=== PATIENT | male | born 1935 | race Caucasian/White ===

== ENCOUNTER 2017-09-27 11:38 | Inpatient (IN) | payer OTHER, MEDICARE ==
[2017-09-27] MEDS ORDERED: IPRATROPIUM/ALBUTEROL 3 ML DEYVIAL IH ONE (12:05)
--- NOTE | 2017-09-27 12:12 | EDPHY ---
H & P Stated Complaint: states URI with sob, fever last 3 days,nasal srainge yellow Time Seen by Provider: 09/27/17 11:51 HPI/ROS: This patient complains of cough and shortness of breath. He explains that while still in [place] about a week ago he developed nasal congestion and occasional cough. His symptoms persisted but worsened 3 days ago with onset of chills and fevers in addition. The patient return from home why 5 days ago. He has moderate dyspnea at baseline over the past few days that worsens with exertion. Patient also developed brown colored sputum over the past couple days. He produces sample this shortly after arrival. He denies any other associated symptoms. He arrives here by private vehicle with his common-law for further evaluation. Patient reports that he took an [id number]-[id number] cold medication today that included a full 325 mg dose of aspirin. ROS: Fevers and chills over the past 3 days as per HPI. No other constitutional symptoms HEENT: He had nasal congestion earlier in the illness that has since resolved. No sore throat. No ear pain. No facial pain. Pulmonary: No pleuritic pain. Moderate dyspnea at times. No respiratory distress. No blood tinged sputum. Cardiovascular: No lightheadedness or heart palpitations. No chest pain. GI: No nausea vomiting : No complaints Integumentary: No skin rash pallor Neuro: No numbness tingling weakness. No headache. Complete ROS is otherwise negative. 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 Patient thinks that he has had atrial bigeminy in the past Hx Asthma: No Hx Chronic Respiratory Disease: Yes Hx Diabetes: No Hx Cardiac Disease: No Hx Renal Disease: No Hx Cirrhosis: No Hx Alcoholism: No Hx HIV/AIDS: No Hx Splenectomy or Spleen Trauma: No Other PMH: Med hx-enlarged prostate,COPD. Surrg-hernia,tonsils - Family History Significant Family History: No pertinent family hx - Social History Smoking Status: Former smoker Alcohol Use: Occasionally Drug Use: None - Physical Exam Exam: Vital signs are notable for hypoxia to 89% baseline. Patient is unaware of any baseline hypoxia. Other vitals normal General Appearance: Alert, no distress. Eyes: Pupils equal and round no pallor or injection. ENT, Mouth: Mucous membranes moist. Respiratory: Diminished breath sounds with rhonchi bilateral bases Cardiovascular: Regular rate and rhythm. No murmur gallop rub. No JVD. No peripheral edema. Gastrointestinal: Abdomen is soft and nontender, no masses, bowel sounds normal. Neurological: GCS 15. Skin: Warm and dry, no rashes. Musculoskeletal: Neck is supple nontender. Extremities are symmetrical, full range of motion. Psychiatric: Mood and affect are normal DIFFERENTIAL DIAGNOSIS: After history and physical exam differential diagnosis was considered for bronchitis, pneumonia, question baseline I LD versus COPD or combination thereof., ischemic cardiac disease Constitutional: Initial Vital Signs Temperature (C) 37.6 C 09/27/17 11:42 Heart Rate 86 09/27/17 11:42 Respiratory Rate 18 09/27/17 11:42 Blood Pressure 104/63 09/27/17 11:42 O2 Sat (%) 89 L 09/27/17 11:42 O2 Delivery Mode Nasal Cannula O2 (L/minute) 2 Allergies/Adverse Reactions: No Known Allergies Allergy (Verified 09/27/17 11:42) Home Medications: Medication Instructions Recorded Flomax 09/27/17 Medical Decision Making - Diagnostics EKG Interpretation: 12 lead EKG performed at 12:23 p.m. reveals supraventricular bigeminy at 79 Intervals: P R of 128, QRS of 94, QTC of 432 [place]: P of 75, QRS of 54, T of 37degrees ST segments normal throughout Overall assessment super ventricular bigeminy Imaging Results: Imaging Impressions Chest X-Ray 09/27/17 12:04 Impression: 1. Right infrahilar pneumonia versus mass. 2. Airways disease and bibasilar linear atelectasis. Case was discussed with Dr. Kyrie Alegre. Recommend follow-up chest radiograph in four weeks. If the right infrahilar process persists, recommend proceeding with CT of the chest with IV contrast to evaluate for underlying mass. Chest x-ray: PA and lateral: Right middle lobe infiltrate with some lower lobe involvement as well on the right side. I also spoke with the radiologist-Dr. Brito regarding this x-ray he brings up the differential diagnosis of possible mass or lesion warranting a follow-up x- ray in 4 weeks to document clearance. Imaging: Discussed imaging studies w/ train caller Radiologist, I viewed and interpreted images myself ED Course/Re-evaluation: IV, nasal cannula O2 with O2 sat in the low 90s Placed on a monitor DuoNeb with reduction in cough frequency and subjective mild improvement. After review of chest x-ray with pneumonia, patient treated with IV Rocephin and oral Zithromax antibiotic Solumedrol 125 mg IV Review of his labs revealed mild renal insufficiency. No significant leukocytosis other's a bit of a left shift. Lactate is normal At 2:15 p.m. patient is having increased frequency of coughing again treated with a 2nd nebulizer-albuterol I think that is renal insufficiency attributable to dehydration treated with a 1 L normal saline bolus here While this patient's findings are not consistent with sepsis, Given combination of patient's hypoxia, multilobar pneumonia, renal insufficiency and atrial bigeminy along with advanced age, I think this patient warrants admission for further treatment. I spoke with his regarding this and are comfortable with the plan for admission to [facility]. I spoke with Mis Moses who accepts patient for admission to Dr. Morales - hospitalist at [facility] for further treatment workup - Data Points Laboratory Results: Laboratory Results 09/27/17 12:15 09/27/17 12:15 09/27/17 09/27/17 09/27/17 12:15 12:15 12:15 WBC 9.08 10^3/uL 10^3/uL (3.80-9.50) RBC 5.18 10^6/uL 10^6/uL (4.40-6.38) Hgb 15.7 g/dL g/dL (13.7-17.5) Hct 45.2 % % (40.0-51.0) MCV 87.3 fL fL (81.5-99.8) MCH 30.3 pg pg (27.9-34.1) MCHC 34.7 g/dL g/dL (32.4-36.7) RDW 13.3 % % (11.5-15.2) Plt Count 192 10^3/uL 10^3/uL (150-400) MPV 10.0 fL fL (8.7-11.7) Neut % (Auto) 75.5 % H % (39.3-74.2) Lymph % (Auto) 10.2 % L % (15.0-45.0) Barry % (Auto) 13.7 % H % (4.5-13.0) Eos % (Auto) 0.1 % L % (0.6-7.6) Baso % (Auto) 0.2 % L % (0.3-1.7) Nucleat RBC Rel Count 0.0 % % (0.0-0.2) Absolute Neuts (auto) 6.85 10^3/uL H 10^3/uL (1.70-6.50) Absolute Lymphs (auto) 0.93 10^3/uL L 10^3/uL (1.00-3.00) Absolute Monos (auto) 1.24 10^3/uL H 10^3/uL (0.30-0.80) Absolute Eos (auto) 0.01 10^3/uL L 10^3/uL (0.03-0.40) Absolute Basos (auto) 0.02 10^3/uL 10^3/uL (0.02-0.10) Absolute Nucleated RBC 0.00 10^3/uL 10^3/uL (0-0.01) Immature Gran % 0.3 % % (0.0-1.1) Immature Gran # 0.03 10^3/uL 10^3/uL (0.00-0.10) VBG Lactic Acid Sodium 142 mEq/L mEq/L (134-144) Potassium 4.1 mEq/L mEq/L (3.5-5.2) Chloride 107 mEq/L mEq/L (97-110) Carbon Dioxide 22 mEq/l mEq/l (22-31) Anion Gap 13 mEq/L mEq/L (8-16) BUN 26 mg/dL H mg/dL (7-23) Creatinine 1.6 mg/dL H mg/dL (0.7-1.3) Estimated GFR 42 Glucose 128 mg/dL H mg/dL (70-100) Calcium 8.9 mg/dL mg/dL (8.5-10.4) Troponin I 0.025 ng/mL ng/mL (0.000-0.034) 09/27/17 12:15 WBC RBC Hgb Hct MCV MCH MCHC RDW Plt Count MPV Neut % (Auto) Lymph % (Auto) Barry % (Auto) Eos % (Auto) Baso % (Auto) Nucleat RBC Rel Count Absolute Neuts (auto) Absolute Lymphs (auto) Absolute Monos (auto) Absolute Eos (auto) Absolute Basos (auto) Absolute Nucleated RBC Immature Gran % Immature Gran # VBG Lactic Acid 2.0 mmol/L mmol/L (0.7-2.1) Sodium Potassium Chloride Carbon Dioxide Anion Gap BUN Creatinine Estimated GFR Glucose Calcium Troponin I Medications Given: Discontinued Medications Albuterol/Ipratropium (Duoneb) 3 ml IH EDNOW ONE Stop: 09/27/17 12:06 Last Admin: 09/27/17 12:20 Dose: 3 ml Aspirin (Aspirin) 325 mg PO EDNOW ONE Stop: 09/27/17 13:12 Last Admin: 09/27/17 13:31 Dose: Not Given Azithromycin (Zithromax) 500 mg PO EDNOW ONE PRN Reason: Protocol Stop: 09/27/17 13:03 Last Admin: 09/27/17 13:14 Dose: 500 mg Sodium Chloride (Ns) 1,000 mls @ 0 mls/hr IV ONCE ONE; Wide Open PRN Reason: Protocol Stop: 09/27/17 12:43 Last Admin: 09/27/17 12:44 Dose: 1,000 mls Ceftriaxone Sodium 1 gm/ (Sodium Chloride) 100 mls @ 200 mls/hr IV EDNOW ONE PRN Reason: Protocol Stop: 09/27/17 13:30 Last Admin: 09/27/17 13:13 Dose: 100 mls Departure - Departure Disposition: [facility] Inpatient Acute Clinical Impression: Renal insufficiency, Atrial bigeminy, Hypoxia Community acquired pneumonia Qualifiers: Laterality: right Lung location: middle lobe of lung Qualified Code(s): J18.1 - Lobar pneumonia, unspecified organism Condition: Fair Referrals: NONE *PRIMARY CARE P,. [Primary Care Provider] - As per Instructions Liliam Briseno MD [Medical Doctor] - As per Instructions
[2017-09-27 12:18] LABS: % IMMATURE GRANULYOCYTES 0.3 % (0.0-1.1); ABSOLUTE IMMATURE GRANULOCYTES 0.03 10^3/uL (0.00-0.10); ADD DIFF? NO; ADD MORPH? NO; ADD SCAN? NO; ATYPICAL LYMPHOCYTE FLAG 30 (0-99); FRAGMENT RBC FLAG 0 (0-99); HEMATOCRIT 45.2 % (40.0-51.0); HEMOGLOBIN 15.7 g/dL (13.7-17.5); LEFT SHIFT FLG 20 (0-99); LIPEMIA HEMOLYSIS FLAG 90 (0-99); MEAN CELL HEMOGLOBIN 30.3 pg (27.9-34.1); MEAN CELL HEMOGLOBIN CONCENTR. 34.7 g/dL (32.4-36.7); MEAN CELL VOLUME 87.3 fL (81.5-99.8); PLATELET CLUMPS FLAG 10 (0-99); PLATELET COUNT 192 10^3/uL (150-400); RED BLOOD CELL COUNT 5.18 10^6/uL (4.40-6.38); RED CELL DISTRIBUTION WIDTH 13.3 % (11.5-15.2)
--- NOTE | 2017-09-27 12:24 | CPEKG ---
Heart Rate: 79 RR Interval: 759 P-R Interval: 128 QRSD Interval: 94 QT Interval: 376 QTC Interval: 432 P [place]: 75 QRS [place]: 54 T Wave [place]: 37 EKG Severity - ABNORMAL ECG - EKG Impression: SINUS RHYTHM EKG Impression: SUPRAVENTRICULAR BIGEMINY Electronically Signed By: Kaden Joyce 01-Oct-2017 08:44:07
[2017-09-27 12:35] LABS: CALCIUM 8.9 mg/dL (8.5-10.4); CREATININE 1.6 mg/dL (0.7-1.3); POTASSIUM 4.1 mEq/L (3.5-5.2)
[2017-09-27] MEDS ORDERED: NS 1,000 ML IV ONE (12:42)
[2017-09-27] MEDS ORDERED: AZITHROMYCIN 250 MG TAB PO ONE (13:02)
[2017-09-27] MEDS ORDERED: ASPIRIN 325 MG TAB PO ONE (13:11)
[2017-09-27] MEDS ORDERED: ALBUTEROL 3 ML DEYVIAL IH ONE (14:23)
[2017-09-27] MEDS ORDERED: methylPREDNISolone SOD SUCC 125 MG/2 ML VIAL IVP ONE (14:34)
[2017-09-27] MEDS ORDERED: ACETAMINOPHEN 325 MG TAB PO PRN (17:00)
[2017-09-27] MEDS ORDERED: ONDANSETRON DISINTEGRATING 4 MG TAB PO PRN (17:00)
[2017-09-27] MEDS ORDERED: IOPAMIDOL (ISOVUE-300) 100 ML BTL ONE (17:08)
[2017-09-27] MEDS ORDERED: NS W/ 20 KCl/L 1,000 ML IV SCH (17:15)
[2017-09-27] MEDS: TAMSULOSIN HCL 0.4 MG CAP PO SCH (20:14)
--- NOTE | 2017-09-27 20:33 | GHP ---
[f rep st] HISTORY AND PHYSICAL DATE OF ADMISSION: 09/27/2017 CHIEF COMPLAINT: Cough, shortness of breath. HISTORY OF PRESENT ILLNESS: This is an 82-year-old man, with limited medical history, who presents w ith 1 week worth of cough. He has had some low-grade fevers. He has been producing purulent sputum. No one else is sick around him. He has not been losing weight, does not have night sweats. He is not otherwise immunosuppressed. PAST MEDICAL/SURGICAL HISTORY: 1. Questionable COPD. 2. BPH. 3. Hernia repair. 4. Tonsillectomy. MEDICATIONS: Please see medication reconciliation. ALLERGIES: No known drug allergies. FAMILY HISTORY: Reviewed and noncontributory. SOCIAL HISTORY: He is . He quit smoking 40 years ago. He was never a heavy smoker. He occa sionally drinks alcohol. He relocated here from [place] about 2 years ago. REVIEW OF SYSTEMS: A 10-point review of systems is conducted and is negative except per HPI. PHYSICAL EXAMINATION: VITAL SIGNS: Blood pressure 114/75, heart rate 84, respiration rate 24, satur ating at 91% on 2 L. Temperature is 37.6. GENERAL: The patient is a pleasant man, who appears somew hat uncomfortable, but really in no acute distress. HEENT: Shows him to be normocephalic, atraumati c. CARDIOVASCULAR: Shows him to have irregular pulse. He is not bradycardic or tachycardic, howeve r. There are no murmurs, rubs, or gallops. PULMONARY: Shows scant expiratory wheezes. He has diff use rhonchi. ABDOMEN: Soft, nontender, nondistended. SKIN: Shows no rash. : No Lacy. NEUROL OGIC: Shows him to be alert and oriented x3. He is moving all extremities. PSYCHIATRIC: Shows nor mal mood and affect. LABORATORY DATA: White count is 9.08. Lactate is 2.0. Creatinine is 1.6. Troponin 0.025. DATA: 1. I personally reviewed and interpreted his EKG that shows underlying sinus rhythm. He has frequen t premature ectopic atrial beats. Heart rate is 79. 2. Chest x-ray, which I personally reviewed and interpreted, shows a right middle lobe infiltrate ve rsus mass. IMPRESSION/PLAN: 1. Suspected pneumonia: Clinical history consistent with this. Imaging is consistent with either i nfiltrate versus mass. Based on its size, I would expect him to be somewhat sicker with fevers and a white count. He does not really have good followup, thus, I will go ahead and get a CT scan to furt her evaluate this. We will send respiratory viral PCR, procalcitonin and sputum cultures. Will empi rically treat him for community-acquired pneumonia with Rocephin, as well as azithromycin. 2. Hypoxia: Likely due to the above. Will give him some nebulizers, as well as prednisone. 3. Elevated creatinine: He has never been told he had kidney problems. I suspect this is acute. F or bandar, will hydrate him and recheck in the morning. Otherwise, he does have a history of benign prostatic hypertrophy, also considered that this could be chronic. 4. Atrial ectopy: Seen on the CT scan, as well as telemetry. He is not having any chest pain. Ton ight, will get 2 more troponins, check an EKG tomorrow morning, as well as an echocardiogram. If all these are relatively unremarkable, this could be deferred to further outpatient workup. CODE STATUS: Full. /[id number]/MODL
[2017-09-28 05:18] LABS: % IMMATURE GRANULYOCYTES 0.3 % (0.0-1.1); ABSOLUTE IMMATURE GRANULOCYTES 0.02 10^3/uL (0.00-0.10); ADD DIFF? NO; ADD MORPH? NO; ADD SCAN? NO; ATYPICAL LYMPHOCYTE FLAG 30 (0-99); FRAGMENT RBC FLAG 0 (0-99); HEMATOCRIT 39.5 % (40.0-51.0); HEMOGLOBIN 13.4 g/dL (13.7-17.5); LEFT SHIFT FLG 70 (0-99); LIPEMIA HEMOLYSIS FLAG 90 (0-99); MEAN CELL HEMOGLOBIN CONCENTR. 33.9 g/dL (32.4-36.7); MEAN CELL VOLUME 88.6 fL (81.5-99.8); MEAN PLATELET VOLUME 10.6 fL (8.7-11.7); PLATELET CLUMPS FLAG 0 (0-99); PLATELET COUNT 173 10^3/uL (150-400); RED BLOOD CELL COUNT 4.46 10^6/uL (4.40-6.38); RED CELL DISTRIBUTION WIDTH 13.3 % (11.5-15.2)
[2017-09-28 05:31] LABS: ALANINE AMINOTRANSFERASE 47 IU/L (21-72); ALBUMIN 2.6 g/dL (3.5-5.0); ALKALINE PHOSPHATASE 73 IU/L (38-126); ANION GAP 9 mEq/L (8-16); ASPARTATE AMINOTRANSFERASE 48 IU/L (17-59); BILIRUBIN,TOTAL 0.5 mg/dL (0.1-1.4); CALCIUM 8.5 mg/dL (8.5-10.4); CARBON DIOXIDE 22 mEq/l (22-31); CHLORIDE 110 mEq/L (97-110); CREATININE 1.1 mg/dL (0.7-1.3); GLOMERULAR FILTRATION RATE > 60; GLUCOSE 158 mg/dL (70-100); POTASSIUM 4.8 mEq/L (3.5-5.2); SODIUM 141 mEq/L (134-144)
[2017-09-28] MEDS: AZITHROMYCIN IV 500 MG in D5W 250 ML IV SCH (08:48)
[2017-09-28] MEDS: MULTIVITAMINS 1 EACH TAB PO SCH (08:49)
[2017-09-28] MEDS: ASPIRIN EC 81 MG TAB PO SCH (08:49)
--- NOTE | 2017-09-28 09:07 | CPEKG ---
Heart Rate: 79 RR Interval: 759 P-R Interval: 136 QRSD Interval: 96 QT Interval: 396 QTC Interval: 455 P [place]: 72 QRS [place]: 56 T Wave [place]: 32 EKG Severity - ABNORMAL ECG - EKG Impression: SINUS RHYTHM EKG Impression: MULTIPLE ATRIAL PREMATURE COMPLEXES Electronically Signed By: Jamaal Johnson 28-Sep-2017 15:55:19
[2017-09-28] MEDS: predniSONE 20 MG TAB PO SCH ×3 (11:01→11:33)
[2017-09-28] MEDS: ENOXAPARIN 30 MG/0.3 ML SYR SC SCH (11:01)
--- NOTE | 2017-09-28 12:44 | ECHO ---
[email or web address] [address] Main: [phone] Fax: Transthoracic Echocardiogram Name: NORMA DAVIS MR#: [id number] Study Date: 09/28/2017 Study Time: 10:15 AM Date of : 1935 Age: 82 year(s) Height: 172.7 cm (68 in.) Weight: 74.84 kg (165 lb.) BSA: 1.88 m2 Gender: Male Examination: Echo Indication: Ectopic rhythm Image Quality: Contrast: Requested by: Chucho Morales BP: 121 mmHg/62 mmHg Heart Rate: Rhythm: Indication: Ectopic rhythm Procedure Staff Pharm Spec: Basilia Martínez Reading Physician: Lalo Hammond Requesting Provider: Conclusions: Normal size left ventricle. The ejection fraction is estimated to be 70-75 %. There is mild thickening of the mitral valve leaflets. Mild mitral valve regurgitation is present. Moderate aortic cusp calcification is present. No aortic valve stenosis is present. IVC normal size. RAP 3 mmhg. Measurements: Chambers Valvular Assessment AV/MV Valvular Assessment TV/PV Normal Normal Normal Name Value Range Name Value Range Name Value Range Ao Suzy (MM): 3.4 cm (2.2 cm-3.7 AV meanP mmHg ( - ) cm) MV E Vmax: 1.01 m/s ( - ) IVSd (2D): 0.8 cm (0.6 cm-1.1 MV A Vmax: 0.78 m/s ( - ) cm) MV E/A: 1.29 ( - ) LVDd (2D): 4.6 cm (4.2 cm-5.9 cm) LVDs (2D): 2.2 cm (2.1 cm-4 cm) LVPWd (2D): 0.9 cm (0.6 cm-1 cm) LVEF (MOD4): 79 % (>=55 %) EF Range: 70-75 % Continued Measurements: Chambers Valvular Assessment AV/MV Name Value Name Value LADs: 3.7 cm MV E' Septal: 0.07 m/s Patient: NORMA DAVIS Study Date: 09/28/2017 Page 1 of 2 10:15 AM LADs Lon.7 cm MV E/E' Septal: 15.00 LA Area: 13.8 cm2 MV E/E' Lateral: 15.70 Findings: Left Ventricle: Normal size left ventricle. Normal global systolic LV function. The ejection fraction is estimated to be 70-75 %. No regional wall motion abnormality. Right Ventricle: Normal size right ventricle. Normal RV function. Left Atrium: The left atrium is normal in size. Right Atrium: The right atrium is normal in size. Mitral Valve: Mild mitral annular calcification. There is mild thickening of the mitral valve leaflets. Mild mitral valve regurgitation is present. Aortic Valve: The aortic valve is tri-leaflet. Moderate aortic cusp calcification is present. Trivial to mild aortic valve regurgitation. No aortic valve stenosis is present. Tricuspid Valve: The tricuspid valve is normal in appearance and function. Trivial to mild tricuspid valve regurgitation. Pulmonic Valve: The pulmonic valve is normal in appearance and function. Trivial pulmonic valve regurgitation. Aorta: The aorta is normal. IVC: IVC normal size. RAP 3 mmhg. Pericardium: No pericardial effusion. (No Signature Object) Patient: NORMA DAVIS Study Date: 09/28/2017 Page 2 of 2 10:15 AM [id number]
[2017-09-28] MEDS ORDERED: IPRATROPIUM/ALBUTEROL 3 ML DEYVIAL ONE (14:56)
[2017-09-28] MEDS: IPRATROPIUM/ALBUTEROL 3 ML DEYVIAL IH SCH ×2 (15:03→22:37)
--- NOTE | 2017-09-28 16:17 | PDMN ---
Medical Necessity Medical necessity: Change to IP, as of 09/28/17, per MD; los >2 mn for ongoing management/tx of suspected pneumonia, hypoxia, atrial bigemminy & renal insufficiency; per order 09/28/17
--- NOTE | 2017-09-28 16:37 | ASMTCMCOM ---
CM Note CM Note Notes: Dc needs unclear, PT/OT to eval, CM will follow. Date Signed: 09/28/2017 04:36 PM Electronically Signed By:Kristi Eduardo RN
--- NOTE | 2017-09-28 16:51 | HOSPPROG ---
Hospitalist Progress Note Assessment/Plan: * RAD exacerbation -steroids, nebs -still very wheezy - needs ongoing inpatient treatment * Bronchitis -azithro * ARF due to dehydration -resolved * CAD by CT -no chest pain -outpatient stress test Subjective: Still hypoxic Objective: Vital Signs Temp Pulse Resp BP Pulse Ox 36.7 C 68 14 130/67 H 92 09/28/17 14:48 09/28/17 15:06 09/28/17 15:06 09/28/17 14:48 09/28/17 15:06 EKG viewed, my personal interpretation is - no ischemic st changes ECHO - normal EF CT chest - no mass or PNA, no infiltrate, c/w bronchitis - Physical Exam Constitutional: no apparent distress, appears nourished, not in pain Cardiovascular: regular rate and rhythym, no murmur, rub, or gallop Respiratory: reduced air movement, expiratory wheeze, respiratory distress, rhonchi Gastrointestinal: normoactive bowel sounds, soft, non-tender abdomen, no palpable masses Skin: no rashes or abrasions, no fluctuance, no induration Neurologic: AAOx3, sensation intact bilaterally Psychiatric: interacting appropriately, not anxious, not encephalopathic, thought process linear ICD10 Worksheet Patient Problems: Problems Problem Status Onset Atrial bigeminy Acute Community acquired pneumonia Acute Hypoxia Acute Renal insufficiency Acute
--- NOTE | 2017-09-28 17:05 | HOSPPROG ---
Hospitalist Progress Note Assessment/Plan: called by lab- gm ng coccobacilli on ceftriaxone/azithro- should be covered Objective: Vital Signs Temp Pulse Resp BP Pulse Ox 36.7 C 68 14 130/67 H 92 09/28/17 14:48 09/28/17 15:06 09/28/17 15:06 09/28/17 14:48 09/28/17 15:06 ICD10 Worksheet Patient Problems: Problems Problem Status Onset Atrial bigeminy Acute Community acquired pneumonia Acute Hypoxia Acute Renal insufficiency Acute
[2017-09-28] MEDS: TAMSULOSIN HCL 0.4 MG CAP PO SCH (20:16)
[2017-09-29 05:36] LABS: % IMMATURE GRANULYOCYTES 0.9 % (0.0-1.1); ABSOLUTE IMMATURE GRANULOCYTES 0.11 10^3/uL (0.00-0.10); ADD DIFF? NO; ADD MORPH? NO; ADD SCAN? NO; ATYPICAL LYMPHOCYTE FLAG 30 (0-99); FRAGMENT RBC FLAG 0 (0-99); HEMATOCRIT 37.5 % (40.0-51.0); HEMOGLOBIN 13.1 g/dL (13.7-17.5); LEFT SHIFT FLG 10 (0-99); LIPEMIA HEMOLYSIS FLAG 90 (0-99); MEAN CELL HEMOGLOBIN 30.6 pg (27.9-34.1); MEAN CELL HEMOGLOBIN CONCENTR. 34.9 g/dL (32.4-36.7); MEAN CELL VOLUME 87.6 fL (81.5-99.8); MEAN PLATELET VOLUME 10.5 fL (8.7-11.7); PLATELET CLUMPS FLAG 10 (0-99); PLATELET COUNT 196 10^3/uL (150-400); RED BLOOD CELL COUNT 4.28 10^6/uL (4.40-6.38); RED CELL DISTRIBUTION WIDTH 13.5 % (11.5-15.2)
[2017-09-29 05:47] LABS: ANION GAP 10 mEq/L (8-16); CALCIUM 8.4 mg/dL (8.5-10.4); CARBON DIOXIDE 22 mEq/l (22-31); CHLORIDE 110 mEq/L (97-110); CHOLESTEROL 121 mg/dL (140-220); CHOLESTEROL/HDL RATIO 4.48 RATIO (1.00-4.97); CREATININE 1.1 mg/dL (0.7-1.3); GLOMERULAR FILTRATION RATE > 60; GLUCOSE 124 mg/dL (70-100); HIGH DENSITY LIPOPROTEIN 27 mg/dL (40-65); LOW DENSITY LIPOPROTEIN 73 mg/dL (80-100); NON-HIGH DENSITY LIPOPROTEIN 94 mg/dL (90-129); POTASSIUM 4.4 mEq/L (3.5-5.2); SODIUM 142 mEq/L (134-144); TRIGLYCERIDE 107 mg/dL (40-150); VERY LOW DENSITY LIPOPROTEINS 21 mg/dL (8-25)
[2017-09-29] MEDS: IPRATROPIUM/ALBUTEROL 3 ML DEYVIAL IH SCH ×4 (05:53→21:49)
[2017-09-29] MEDS: ASPIRIN EC 81 MG TAB PO SCH (08:26)
[2017-09-29] MEDS: AZITHROMYCIN IV 500 MG in D5W 250 ML IV SCH (08:26)
[2017-09-29] MEDS: predniSONE 20 MG TAB PO SCH (08:26)
[2017-09-29] MEDS: MULTIVITAMINS 1 EACH TAB PO SCH (08:26)
[2017-09-29] MEDS: ENOXAPARIN 30 MG/0.3 ML SYR SC SCH (09:49)
--- NOTE | 2017-09-29 12:56 | HOSPPROG ---
Hospitalist Progress Note Assessment/Plan: * H flu bacteremia -pulmonary source - also in sputum -d/w Dr. Holt - ID to consult -continue IV ceftriaxone, okay to LISETTE carrero * RAD exacerbation -steroids, nebs * Bronchitis with probable PNA - H flu -abx as above * ARF due to dehydration -resolved * CAD by CT -no chest pain -outpatient stress test Subjective: Better Objective: Vital Signs Temp Pulse Resp BP Pulse Ox 37.1 C 68 14 119/63 91 L 09/29/17 12:00 09/29/17 12:00 09/29/17 12:00 09/29/17 12:00 09/29/17 12:00 Laboratory Results 09/29/17 04:52 09/29/17 04:52 09/28/17 09/29/17 09/30/17 05:59 05:59 05:59 Intake Total 625 Balance 625 - Physical Exam Constitutional: no apparent distress, appears nourished, not in pain Cardiovascular: regular rate and rhythym, no murmur, rub, or gallop Respiratory: no respiratory distress, inspiratory crackles, rhonchi, No expiratory wheeze Gastrointestinal: normoactive bowel sounds, soft, non-tender abdomen, no palpable masses Skin: no rashes or abrasions, no fluctuance, no induration Neurologic: AAOx3, sensation intact bilaterally Psychiatric: interacting appropriately, not anxious, not encephalopathic, thought process linear ICD10 Worksheet Patient Problems: Problems Problem Status Onset Atrial bigeminy Acute Community acquired pneumonia Acute Hypoxia Acute Renal insufficiency Acute
--- NOTE | 2017-09-29 14:48 | GCON ---
[f rep st] CONSULTATION INFECTIOUS DISEASE CONSULTATION DATE OF CONSULTATION: 09/29/2017 REASON FOR CONSULTATION: Haemophilus influenzae, pneumonia and bacteremia. HPI: 82-year-old male whose problems started approximately 10 days back when they were returning from a trip to [place]. He started developing lightheadedness at the end of the trip which subsequently developed into congestion, subjective fevers, chills, and coughing. The patient's noted increasing work of breathing and tremulousness, and eventually encouraged the patient to come to the emergency room on 09/27/2017. In the emergency room, patient was found to be hypoxic and chest x-ray showed a right hilar infiltrate which did not appear as prominent on corresponding CT scan, but that did show some bilateral infiltrates, right greater than left. In addition, the patient was found to have mild renal insufficiency with a creatinine of 1.6 on admission. He was admitted to the hospital, started on ceftriaxone and azithromycin for community-acquired pneumonia, and blood and sputum cultures were obtained. Sputum cultures grew Haemophilus influenzae, and subsequently blood cultures came positive for the same organism. ID is asked for consultation for management of disease. The patient does not have any sick contacts that he is aware of. He does report that his vaccinations are up to date. He received his influenza vaccination this year. He is not certain whether he has received the Prevnar vaccination, but has gotten a pneumococcal vaccination of some type. PAST MEDICAL/SURGICAL HISTORY: 1. Possible COPD for 30 years, but he has not had any monitoring for 15. 2. Hernia operation 20 years ago. 3. BPH. 4. The patient had extensive cardiac workup and denies any underlying valvular disease. SOCIAL HISTORY: The patient is partially retired, working in mechanical engineering. Has a remote history of tobacco, occasional alcohol. Moved to [place] 2 years ago from [place] to be near his family. FAMILY HISTORY: Positive for possible underlying lung disease. ALLERGIES: NKDA. MEDICATIONS: Ceftriaxone 1 g IV daily, Lovenox 30 subcu daily, multivitamin 1 daily, Zofran as needed, prednisone 40 mg daily, Flomax 0.4 mg at night, albuterol scheduled, and Tylenol as needed, and aspirin 81 daily. REVIEW OF SYSTEMS: A complete 10-point review of systems was performed and is negative except as mentioned in the HPI or below. In addition, the patient describes cramps in his legs with ambulation that has been longstanding. PHYSICAL EXAM: VITAL SIGNS: BP 119/63, HR 68, RR 14. Saturation drops down to 83 on room air when he is talking, and 91% with oxygen. GENERAL: In general, this is a very pleasant male sitting up in bed in no respiratory distress with fluent speech, appears younger than his stated age. HEENT: Good dentition. Moist mucous membranes. No oral ulcerations or exudate. NECK: Supple. No lymphadenopathy. CARDIOVASCULAR: Regular rate, no murmurs. CHEST: The patient had coarse rhonchi scattered bilaterally. No wheezes or crackles were appreciated. ABDOMEN: Soft, nontender. Bowel sounds are present. EXTREMITIES : No clubbing, cyanosis, or edema. The patient had thready dorsalis pedis pulses. NEUROLOGIC: He is alert and oriented x4. Motor was intact. He is able to stand without assistance. SKIN: No rashes. LABORATORY: White count 12.9, hematocrit 37, platelets of 196, 88% neutrophils. Creatinine is 1.1, on admission was 1.6. AST 48, ALT 47, alkaline phosphatase 73. MICROSCOPIC DATA: As per HPI. IMAGING: As per HPI. ECHOCARDIOGRAM: Echocardiogram was also performed, which showed ejection fraction of 70% to 75%. Trivial tricuspid regurgitation. Trivial pulmonic regurgitation. No aortic valve stenosis. Trivial regurgitation with an aortic cusp calcification. Also noted was normal RV function and mild thickening of the mitral valve leaflets. ASSESSMENT AND PLAN: This is an 82-year-old male with likely underlying lung disease, who presents with increasing shortness of breath, subsequently found to have pneumonia complicated by bacteremia with Haemophilus influenzae. Reviewed the pathogenesis of pneumonia with the patient and his at bedside including varying pathogens which cause pneumonia, Haemophilus influenzae being one of the more common. Reviewed potential complications of Haemophilus influenzae bacteremia including the rare incidence of endocarditis. Reviewed side effects of antibiotic therapy, and ongoing need for management of underlying lung disease. 1. Would continue ceftriaxone while hospitalized. At time of discharge, will likely transition to p.o. levofloxacin to complete a 14 day course. 2. Would obtain repeat blood cultures to assure clearance to support the lack of presence of endocarditis. 3. Reviewed with patient likely occult hypoxia, and need for chronic O2 therapy. Recommended establishing primary care and a pulmonary consultation, and provided recommendations. 4. The patient already received influenza vaccination this year. Thank you for this consultation. We will continue to follow with you. Time 75 minutes with greater than 50% time spent with education and counseling regarding the pathogenesis of pneumonia, treatment of pneumonia, implications of bacteremia and potential complication /[id number]/MODL MTDD
--- NOTE | 2017-09-29 15:39 | ASMTCMCOM ---
CM Note CM Note Notes: Pt cleared by PT/OT, will dc home w/support of when medically stable. CM available for any changes. Date Signed: 09/29/2017 03:38 PM Electronically Signed By:Kristi Eduardo RN
[2017-09-29] MEDS: TAMSULOSIN HCL 0.4 MG CAP PO SCH (20:11)
[2017-09-30] MEDS: IPRATROPIUM/ALBUTEROL 3 ML DEYVIAL IH SCH ×2 (06:04→11:14)
[2017-09-30 07:30] VITALS: BP 92/40; TEMP 97.8
[2017-09-30] MEDS: MULTIVITAMINS 1 EACH TAB PO SCH (08:44)
[2017-09-30] MEDS: ASPIRIN EC 81 MG TAB PO SCH (08:44)
[2017-09-30] MEDS: predniSONE 20 MG TAB PO SCH (08:44)
[2017-09-30] MEDS ORDERED: ENOXAPARIN 40 MG/0.4 ML SYR SC SCH (09:00)
--- NOTE | 2017-09-30 10:39 | PCMIDPN ---
Assessment/Plan: Haemophilus influenza pneumonia and bacteremia, clinically improved. Blood cultures from 09/30 are still pending but will follow up as an outpatient. No signs of endocarditis, doubt these blood cultures will be positive. Suspect underlying lung disease which predisposed him to pneumonia complicated by bacteremia. --discharge okay --Creatinine clearance is 54 therefore would give levofloxacin 750 mg daily starting 10/01/2017 for 10 more days. --Will call patient with follow-up appointment information Medications Ceftriaxone 1 g IV daily Subjective: Patient is feeling well in desires to go home. Objective: Vital Signs Temp Pulse Resp BP Pulse Ox 36.6 C 71 18 92/40 L 94 09/30/17 07:28 09/30/17 07:28 09/30/17 07:28 09/30/17 07:28 09/30/17 07:28 Laboratory Results 09/29/17 04:52 09/29/17 04:52 09/29/17 09/30/17 10/01/17 05:59 05:59 05:59 Intake Total 625 240 Balance 625 240 - Physical Exam Respiratory: bronchial breath sounds (Scattered), other (Improved air movement) , No accessory muscle use Cardiac/Chest: regular rate, rhythm, No systolic murmur Extremities: No pedal edema Abdomen: non-tender, soft Skin: No diaphoresis, No jaundice, No rash, No embolic lesions Neuro/Psych: alert, normal mood/affect, oriented x 3 - Time Spent With Patient Time Spent with Patient: greater than 25 minutes (Extensively reviewed side effects of levofloxacin and documented in discharge paperwork) Time Spent with Patient: Greater than 25 minutes spent on this patients care, greater than 50% of time spent counseling, educating, and coordinating care regarding the above mentioned plan. ICD10 Worksheet Patient Problems: Problems Problem Status Onset Atrial bigeminy Acute Community acquired pneumonia Acute Hypoxia Acute Renal insufficiency Acute chronic disease mgmt/transitional care Acute
[2017-09-30 11:22] VITALS: PULSE 75; O2SAT 96
[2017-09-30 11:28] VITALS: RESP 14
--- NOTE | 2017-09-30 14:38 | ASDISCHSUM ---
Discharge Information Plan Status:Home with No Needs Medically Cleared to Leave: Discharge Date:09/30/2017 02:21 PM CM D/C Disposition:Home, Routine, Self-Care ADT D/C Disposition:Home, Routine, Self-Care Projected Discharge Date:09/30/2017 02:21 PM Transportation at D/C: Discharge Delay Reason: Follow-Up Date:09/30/2017 02:21 PM Discharge Slot: Final Diagnosis: Placement Information Patient Contact Information Contact Name:HALEY Relationship:Life Partner Address:[address] [place] [address] City:[place] Phone: [facility] Code:[place] [address] Email: Financial Information Financial Class: Primary Plan Desc:MEDICARE INPATIENT Primary Plan Number:[id number] Secondary Plan Desc:[employer]/MDR SUPPLEMENT Secondary Plan Number:[id number] Assessment Information [facility] CM Progress Note CM Note CM Note Notes: Dc needs unclear, PT/OT to eval, CM will follow. Date Signed: 09/28/2017 04:36 PM Electronically Signed By:Kristi Eduardo RN [facility] CM Progress Note CM Note CM Note Notes: Pt cleared by PT/OT, will dc home w/support of when medically stable. CM available for any changes. Date Signed: 09/29/2017 03:38 PM Electronically Signed By:Kristi Eduardo RN Intervention Information
--- NOTE | 2017-09-30 21:58 | GDS ---
[f rep st] DISCHARGE SUMMARY DISCHARGE DIAGNOSES: 1. Haemophilus influenzae bacteremia. 2. Pneumonia. 3. Reactive airways disease exacerbation. 4. Acute renal failure due to dehydration. 5. Coronary artery calcifications by CAT scan. HISTORY: The patient is an 82-year-old male, who presented with pulmonary symptoms and shortness of breath and was diagnosed with pneumonia. Blood cultures grew Haemophilus influenzae, as did his sput um. Infectious Disease saw him in consultation. He received IV ceftriaxone throughout his hospitali zation. He was transitioned to oral Levaquin at discharge. He also had significant wheezing consistent with a reactive airways disease exacerbation due to his i nfection. He does not have a previous history of COPD or asthma. He was started on steroids and neb ulizers and improved. He was very hypoxemic, and this did resolve with time and he was good saturati ons on room air at hospital discharge and no longer needed oxygen. Incidentally noted on CT angiogram of the chest for PE were coronary calcifications in 3 vessels. Th ere was no pulmonary embolus. He does not have any chest pain. Outpatient stress test can be pursue d. DISCHARGE MEDICATIONS: Please see computerized record for full detailed list. New medications: 1. Levaquin 750 mg p.o. daily for 10 days. 2. Prednisone 40 mg p.o. daily for 3 more days. 3. Albuterol 1-2 puffs every 4 hours as needed. ADDITIONAL DISCHARGE INSTRUCTIONS: 1. Patient was advised regarding possible side effects of Levaquin, including photosensitivity, tend inopathy, and interaction with electrolytes, as well as confusion. 2. Follow up with Dr. Jessica Holt, Infectious Disease. 3. Outpatient cardiac stress testing. Greater than 30 minutes' time was spent arranging this discharge. Patient was seen and examined by fabian paz on the day of discharge. Greater than 30 minutes' time spent arranging this discharge. Patient was seen and examined by me on day of discharge. /[id number]/MODL
--- NOTE | 2017-10-01 21:58 | HOSPPROG ---
Hospitalist Progress Note Assessment/Plan: called by lab- gm kimmie coccobacilli from 09/30 cx on levoflox will discuss w dr valentine 10/01 Objective: Vital Signs Temp Pulse Resp BP Pulse Ox 36.6 C 75 14 92/40 L 96 09/30/17 07:28 09/30/17 11:22 09/30/17 11:16 09/30/17 07:28 09/30/17 11:22 Laboratory Results 09/29/17 04:52 09/29/17 04:52 09/30/17 10/01/17 10/02/17 05:59 05:59 05:59 Intake Total 240 50 Balance 240 50 ICD10 Worksheet Patient Problems: Problems Problem Status Onset chronic disease mgmt/transitional care Acute Community acquired pneumonia Acute Renal insufficiency Acute Atrial bigeminy Acute Hypoxia Acute
--- NOTE | 2017-10-02 09:11 | PCMIDPN ---
Assessment/Plan: Haemophilus influenza pneumonia and bacteremia, clinically improved Possible second set of blood cultures from 09/27/17 are positive, not blood cx from 09/30/17 No change in therapy. Will follow up in [facility] 10/02/17 09:11 Objective: Vital Signs Temp Pulse Resp BP Pulse Ox 36.6 C 75 14 92/40 L 96 09/30/17 07:28 09/30/17 11:22 09/30/17 11:16 09/30/17 07:28 09/30/17 11:22 Laboratory Results 09/29/17 04:52 09/29/17 04:52 10/01/17 10/02/17 10/03/17 05:59 05:59 05:59 Intake Total 50 Balance 50 ICD10 Worksheet Patient Problems: Problems Problem Status Onset Atrial bigeminy Acute Community acquired pneumonia Acute Hypoxia Acute Renal insufficiency Acute chronic disease [facility]/transitional care Acute
== END 2017-09-30 14:21 | disposition home or self-care (01) | DRG 194 ==
LOC: CED 11:38 → CEDHOLD 13:41 → F3E 15:27 → OBSVTOIN 09-28 13:08
PROVIDERS: ADMIT Student in an Organized Health Care Education/Training Program; ATTEND Student in an Organized Health Care Education/Training Program
DX: J18.8 Other pneumonia, unspecified organism (principal); R78.81 Bacteremia; N17.9 Acute kidney failure, unspecified; B96.3 Hemophilus influenzae [H. influenzae] as the cause of diseases classified elsewhere; J45.909 Unspecified asthma, uncomplicated; E86.0 Dehydration; Z87.891 Personal history of nicotine dependence
CPT/HCPCS: 71020-PO; 80048-PO; 83605-PO; 84484-PO; 85025-PO; 97161-GP; 97165-GO; G0378; G8978-GP-CH; G8979-GP-CH; G8980-GP-CH; G8987-GO-CI; G8988-GO-CH; G8989-GO-CH; J0456; J0696; J1650; J2930; Q9967

== ENCOUNTER → 2017-11-22 | Outpatient (CLI) | payer OTHER, MEDICARE | LOC: BHFA 10:00 | PROVIDERS: ATTEND Internal Medicine Cardiovascular Disease | DX: J44.9 Chronic obstructive pulmonary disease, unspecified (principal) ==

== ENCOUNTER 2017-12-13 02:07 | Emergency (ER) | payer OTHER, MEDICARE ==
[2017-12-13 02:12] VITALS: TEMP 99.1
[2017-12-13] MEDS ORDERED: NS 1,000 ML IV ONE (02:59)
[2017-12-13] MEDS ORDERED: IOPAMIDOL (ISOVUE-300) 100 ML BTL ONE (03:20)
[2017-12-13 03:33] LABS: PLATELET COUNT 216 10^3/uL (150-400)
--- NOTE | 2017-12-13 03:52 | EDPHY ---
H & P Stated Complaint: constipation since sunday Time Seen by Provider: 12/13/17 02:30 HPI/ROS: HPI The patient presents with lower abdominal pain which is described as a intermittent sharp pain mostly in his right side. This is been present for the last 4 days. This is associated with constipation, patient's last bowel movement was 3 days ago. He also reports some pain when initiating his urinary stream. He has not had any fever, nausea or vomiting.. He is not taking any new medications. He did try glycerin suppository, however this did not help. REVIEW OF SYSTEMS Constitutional: No fever, no chills. Eyes: No discharge. ENT: No sore throat. Cardiovascular: No chest pain, no palpitations. Respiratory: No cough, no shortness of breath. Gastrointestinal: See HPI Genitourinary: No hematuria. Musculoskeletal: No back pain. Skin: No rashes. Neurological: No headache. PMHx: COPD, BPH Soc Hx: Lives at home with his PHYSICAL General Appearance: Alert, no distress Eyes: Pupils equal and round no pallor or injection ENT, Mouth: Mucous membranes moist Respiratory: There are no retractions, lungs are clear to auscultation Cardiovascular: Regular rate and rhythm Gastrointestinal: Abdomen is soft with mild tenderness in the lower quadrants, no masses, bowel sounds normal Rectal: No masses felt, no stool in vault, no gross blood Neurological: A&O, moves all extremities Skin: Warm and dry, no rashes Musculoskeletal: Neck is supple non tender Extremities: symmetrical, full range of motion Psychiatric: Patient is oriented X 3, there is no agitation Source: Patient, Family Exam Limitations: No limitations - Medical/Surgical History Hx Asthma: No Hx Chronic Respiratory Disease: Yes Hx Diabetes: No Hx Cardiac Disease: No Hx Renal Disease: No Hx Cirrhosis: No Hx Alcoholism: No Hx HIV/AIDS: No Hx Splenectomy or Spleen Trauma: No Other PMH: Med hx-enlarged prostate,COPD. Surrg-hernia,tonsils - Social History Smoking Status: Former smoker Constitutional: Initial Vital Signs Temperature (C) 37.3 C 12/13/17 02:10 Heart Rate 79 12/13/17 02:10 Respiratory Rate 18 12/13/17 02:10 Blood Pressure 118/70 12/13/17 02:10 O2 Sat (%) 91 L 12/13/17 02:10 Allergies/Adverse Reactions: No Known Allergies Allergy (Verified 12/13/17 02:10) Home Medications: Medication Instructions Recorded Aspirin EC [Aspirin EC 81 mg (*)] 81 mg PO DAILY 09/27/17 Multivitamins [Multivitamin (*)] 1 tab PO DAILY 09/27/17 Tamsulosin HCl [Flomax 0.4 MG (*)] 0.4 mg PO HS 09/27/17 Albuterol [Proventil Inhaler HFA 1 - 2 puffs IH Q4H PRN #1 mdi 09/30/17 (*)] levOFLOXACIN [levAQUIN (*)] 750 mg PO DAILY #10 tab 09/30/17 predniSONE 40 mg PO DAILY #6 tablet 09/30/17 Amoxicillin/Clavulanate Pot 875 mg PO BID #14 tab 12/13/17 [Augmentin 875 MG TAB (*)] Polyethylene Glycol 3350 [Miralax 17 gm PO DAILY #15 pkt 12/13/17 17 gm (*)] Medical Decision Making - Diagnostics Imaging Results: CT abdomen pelvis with IV contrast demonstrates sigmoid diverticulitis without abscess, small amount of free fluid in the deep pelvis. There is a 1.4 cm complex cystic lesion in the right kidney. This was discussed with Dr. Charles of Radiology. Differential Diagnosis: This is an 82-year-old male with history of BPH in COPD who presents with constipation and lower abdominal pain. On exam, he is well-appearing, he does have lower abdominal tenderness. Differential diagnosis includes constipation, diverticulitis, appendicitis, urinary tract infection. In the emergency department, patient declined any pain medication. He generally felt well. Labs were checked and did reveal leukocytosis. CT scan was performed and shows sigmoid diverticulitis. I feel this is likely the cause of the patient's symptomatology. I have offered him admission to the hospital, however he declines. He would like to recuperate at home. I feel this is reasonable. I will discharge him with Augmentin as well as MiraLax for his constipation. We have discussed a high-fiber diet. He should follow up with his primary care doctor in 1-2 days and can return to the emergency department if he is worse in any way. - Data Points Laboratory Results: Laboratory Results 12/13/17 03:07 12/13/17 03:07 12/13/17 12/13/17 12/13/17 04:07 03:07 03:07 WBC RBC Hgb POC Hgb 14.6 gm/dL gm/dL (13.7-17.5) Hct POC Hct 43 % % (40-51) MCV MCH MCHC RDW Plt Count MPV Neut % (Auto) Lymph % (Auto) Darke % (Auto) Eos % (Auto) Baso % (Auto) Nucleat RBC Rel Count Absolute Neuts (auto) Absolute Lymphs (auto) Absolute Monos (auto) Absolute Eos (auto) Absolute Basos (auto) Absolute Nucleated RBC Immature Gran % Immature Gran # POC Sodium 142 mEq/L mEq/L (135-145) Sodium 144 mEq/L mEq/L (135-145) POC Potassium 4.3 mEq/L mEq/L (3.3-5.0) Potassium 4.7 mEq/L mEq/L (3.5-5.2) POC Chloride 105 mEq/L mEq/L (97-110) Chloride 108 mEq/L mEq/L (97-110) Carbon Dioxide 24 mEq/l mEq/l (22-31) Anion Gap 12 mEq/L mEq/L (8-16) POC BUN 18 mg/dL mg/dL (7-23) BUN 17 mg/dL mg/dL (7-23) Creatinine 1.1 mg/dL mg/dL (0.7-1.3) POC Creatinine 1.1 mg/dL mg/dL (0.7-1.3) Estimated GFR > 60 Glucose 109 mg/dL H mg/dL (70-100) POC Glucose 114 mg/dL H mg/dL (70-100) Calcium 9.2 mg/dL mg/dL (8.5-10.4) Total Bilirubin 0.7 mg/dL mg/dL (0.1-1.4) Conjugated Bilirubin 0.2 mg/dL mg/dL (0.0-0.5) Unconjugated Bilirubin 0.5 mg/dL mg/dL (0.0-1.1) AST 19 IU/L IU/L (17-59) ALT 27 IU/L IU/L (21-72) Alkaline Phosphatase 81 IU/L IU/L (38-126) Total Protein 6.1 g/dL L g/dL (6.3-8.2) Albumin 3.5 g/dL g/dL (3.5-5.0) Lipase 69 IU/L IU/L (23-300) Urine Color PALE YELLOW Urine Appearance CLEAR Urine pH 7.0 (5.0-7.5) Ur Specific [place] 1.020 (1.002-1.030) Urine Protein NEGATIVE (NEGATIVE) Urine Ketones NEGATIVE (NEGATIVE) Urine Blood NEGATIVE (NEGATIVE) Urine Nitrate NEGATIVE (NEGATIVE) Urine Bilirubin NEGATIVE (NEGATIVE) Urine Urobilinogen NEGATIVE EU EU (0.2-1.0) Ur Leukocyte Esterase NEGATIVE (NEGATIVE) Urine Glucose NEGATIVE (NEGATIVE) 12/13/17 03:07 WBC 12.98 10^3/uL H 10^3/uL (3.80-9.50) RBC 4.81 10^6/uL 10^6/uL (4.40-6.38) Hgb 14.7 g/dL g/dL (13.7-17.5) POC Hgb Hct 42.3 % % (40.0-51.0) POC Hct MCV 87.9 fL fL (81.5-99.8) MCH 30.6 pg pg (27.9-34.1) MCHC 34.8 g/dL g/dL (32.4-36.7) RDW 12.9 % % (11.5-15.2) Plt Count 216 10^3/uL 10^3/uL (150-400) MPV 9.8 fL fL (8.7-11.7) Neut % (Auto) 77.7 % H % (39.3-74.2) Lymph % (Auto) 10.4 % L % (15.0-45.0) Darke % (Auto) 10.3 % % (4.5-13.0) Eos % (Auto) 0.8 % % (0.6-7.6) Baso % (Auto) 0.5 % % (0.3-1.7) Nucleat RBC Rel Count 0.0 % % (0.0-0.2) Absolute Neuts (auto) 10.07 10^3/uL H 10^3/uL (1.70-6.50) Absolute Lymphs (auto) 1.35 10^3/uL 10^3/uL (1.00-3.00) Absolute Monos (auto) 1.34 10^3/uL H 10^3/uL (0.30-0.80) Absolute Eos (auto) 0.11 10^3/uL 10^3/uL (0.03-0.40) Absolute Basos (auto) 0.07 10^3/uL 10^3/uL (0.02-0.10) Absolute Nucleated RBC 0.00 10^3/uL 10^3/uL (0-0.01) Immature Gran % 0.3 % % (0.0-1.1) Immature Gran # 0.04 10^3/uL 10^3/uL (0.00-0.10) POC Sodium Sodium POC Potassium Potassium POC Chloride Chloride Carbon Dioxide Anion Gap POC BUN BUN Creatinine POC Creatinine Estimated GFR Glucose POC Glucose Calcium Total Bilirubin Conjugated Bilirubin Unconjugated Bilirubin AST ALT Alkaline Phosphatase Total Protein Albumin Lipase Urine Color Urine Appearance Urine pH Ur Specific [place] Urine Protein Urine Ketones Urine Blood Urine Nitrate Urine Bilirubin Urine Urobilinogen Ur Leukocyte Esterase Urine Glucose Medications Given: Discontinued Medications Amoxicillin/Clavulanate Potassium (Augmentin 875mg) 875 mg PO EDNOW ONE PRN Reason: Protocol Stop: 12/13/17 04:11 Last Admin: 12/13/17 04:13 Dose: 875 mg Sodium Chloride (Ns) 1,000 mls @ 0 mls/hr IV EDNOW ONE; Wide Open PRN Reason: Protocol Stop: 12/13/17 03:00 Last Admin: 12/13/17 03:09 Dose: 1,000 mls Point of Care Test Results: 12/13/17 03:07 POC Sodium 142 POC Potassium 4.3 POC Chloride 105 POC BUN 18 POC Creatinine 1.1 POC Glucose 114 H Departure - Departure Disposition: Home, Routine, Self-Care Clinical Impression: Diverticulitis Constipation Qualifiers: Constipation type: unspecified constipation type Qualified Code(s): K59.00 - Constipation, unspecified Condition: Good Instructions: Diverticulitis (ED), Constipation (ED), High Fiber Diet (ED) Additional Instructions: Please follow-up with your regular doctor in 1-2 days unless feeling completely better. You should maintain a high-fiber diet. I have given you information for follow up with Gastroenterology, you should see them in a few weeks. Your CT scan also showed that there is a cyst on your right kidney which needs follow-up in about 6 months with a repeat CT scan. Your primary care doctor should be able to order this for you. Referrals: Brielle Niño MD [Primary Care Provider] - As per Instructions Briseida Pardo MD [Medical Doctor] - As per Instructions Prescriptions: Amoxicillin/Clavulanate Pot [Augmentin 875 MG TAB (*)] 875 mg PO BID #14 tab Polyethylene Glycol 3350 [Miralax 17 gm (*)] 17 gm PO DAILY #15 pkt
[2017-12-13] MEDS ORDERED: AMOXICILLIN/CLAVULANATE POT 875/125 MG TAB PO ONE (04:10)
[2017-12-13] MEDS ORDERED: POLYETHYLENE GLYCOL 3350 17 GM PKT PO ONE (04:29)
[2017-12-13] MEDS ORDERED: POLYETHYLENE GLYCOL 3350 17 GM PKT ONE (04:30)
[2017-12-13 04:41] VITALS: BP 136/73; PULSE 82; RESP 16; O2SAT 96
== END 2017-12-13 04:45 | disposition home or self-care (01) ==
PROC: 3E0337Z Introduction of Electrolytic and Water Balance Substance into Peripheral Vein, Percutaneous Approach (ICD-10-PCS; principal; 2017-12-13)
DX: K57.92 Diverticulitis of intestine, part unspecified, without perforation or abscess without bleeding (principal); J44.9 Chronic obstructive pulmonary disease, unspecified; E86.9 Volume depletion, unspecified; Z79.82 Long term (current) use of aspirin; Z87.891 Personal history of nicotine dependence
CPT/HCPCS: 74177; 96360; 99285; Q9967; 82947-QW

== ENCOUNTER → 2018-09-06 | Outpatient (CLI) | payer OTHER, MEDICARE | LOC: BHFA 15:30 | PROVIDERS: ATTEND Internal Medicine Cardiovascular Disease | DX: I73.9 Peripheral vascular disease, unspecified (principal); R26.89 Other abnormalities of gait and mobility; M79.604 Pain in right leg ==

== ENCOUNTER → 2018-10-18 | Outpatient (CLI) | payer OTHER, MEDICARE | LOC: BHFA 15:30 | PROVIDERS: ATTEND Internal Medicine Cardiovascular Disease | DX: I73.9 Peripheral vascular disease, unspecified (principal) ==

== ENCOUNTER → 2018-10-31 | Outpatient (CLI) | payer OTHER, MEDICARE ==
[~2018-10-31] MED LIST: IOPAMIDOL (ISOVUE-370) 150 ML BTL IV ONE
== END ==
LOC: CIMAGING 11:24
PROVIDERS: ATTEND Internal Medicine Cardiovascular Disease
DX: I70.0 Atherosclerosis of aorta (principal); I70.1 Atherosclerosis of renal artery; I77.1 Stricture of artery
CPT/HCPCS: 75635; Q9967; 82565-PO

== ENCOUNTER → 2018-12-25 | Outpatient (CLI) | payer OTHER, MEDICARE ==
[~2018-12-25] MED LIST changes: +GADOBUTROL 10 ML VIAL IVP ONE; -IOPAMIDOL (ISOVUE-370) 150 ML BTL IV ONE
== END ==
LOC: FIMAGING 09:54
PROVIDERS: ATTEND Physician Assistant Medical
DX: R42 Dizziness and giddiness (principal)
CPT/HCPCS: 70553; A9585; 82565-PO